=== PATIENT | male | born 1960 | race Caucasian/White ===

== ENCOUNTER 2018-01-30 23:01 | Emergency (ER) | payer OTHER ==
--- NOTE | 2018-01-31 00:06 | EDPHY ---
H & P Time Seen by Provider: 01/30/18 23:09 HPI/ROS: CC: Right ear discomfort HPI: This 57-year-old male with past medical history of a myocardial bridge, hypertension, bladder cancer presents to the emergency department tonight complaining of right ear discomfort for the last 2-3 weeks and occasionally feeling like his head is "swimming". He states he had a DO T physical few weeks ago and they noticed that he had a hair in his ear from a prior hair cut. Since that time he has had some ear discomfort and feeling like there is water in his ear. He states the lightheadedness will occur sometimes when he turns his head too fast and often it happens in the afternoon. He states he has had a headache the last few days but it goes away completely when he takes Excedrin. He does not have a headache now. He states he has not been sleeping well and will often take a couple Benadryl at night for sleep and allergies. 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 He has also had an increase in his metoprolol from 25 mg a day to 50 mg per day. He takes this once a day and takes it at various times depending on his schedule. He denies changes in his vision, neck pain or stiffness, sore throat, runny nose, cough, chest pain, abdominal pain, urinary retention. He occasionally feels short of breath. REVIEW OF SYSTEMS: Constitutional: No fever, no chills. Eyes: No discharge. ENT: No sore throat. Respiratory: No cough, no shortness of breath. Cardiac: No chest pain, no palpitations. Gastrointestinal: No abdominal pain, no vomiting. Genitourinary: No hematuria. Musculoskeletal: No back pain. Skin: No rashes. Neurological: No numbness, tingling or weakness. Psych: No suicidal ideation. Past Medical/Surgical History: PMH: Myocardial bridge, hypertension, bladder cancer in 2010 which was treated with 2 surgeries and BCG for approximately 3 years. PSH: Includes a back surgery at age 15, bladder surgery, appendectomy FH: Father approximately 2 years ago from congestive heart failure, he also had COPD. His mother at age 70 from lung cancer. No known drug allergies Medications include metoprolol 50 mg per day, Exforge, vitamin-D and a once a day vitamin. Occasional Benadryl. Primary care provider is Dr. Thor Banegas Social History: Denies tobacco products. Previously used to chew. He has a few alcoholic beverages per week. No marijuana products. Smoking Status: Never smoked Physical Exam: General Appearance: Alert, no distress. Eyes: Pupils equal and round no pallor or injection. ENT, Mouth: Right TM clear. 2 small hair clippings in EAC. Left TM clear. Mucous membranes are moist. Respiratory: There are no retractions, lungs are clear to auscultation. Cardiovascular: Regular rate and rhythm. No murmurs, gallops or rubs. Gastrointestinal: Abdomen is soft and nontender, bowel sounds normal. Neurological: Awake and alert, sensory and motor exams grossly normal. Skin: Warm and dry, no rashes. Musculoskeletal: Neck is supple and nontender. Extremities are symmetrical, full range of motion. Psychiatric: Patient is oriented X 3, there is no agitation. DIFFERENTIAL DIAGNOSIS: After history and physical exam differential diagnosis was considered for but not limited to: Otitis media, otitis externa, foreign body in EAC, vertigo, medication side effect, brain tumor, anemia, electrolyte imbalance Constitutional: Initial Vital Signs Temperature (C) 97.5 F 01/30/18 23:02 Heart Rate 59 L 01/30/18 23:02 Respiratory Rate 16 01/30/18 23:02 Blood Pressure 127/81 H 01/30/18 23:02 O2 Sat (%) 97 01/30/18 23:02 O2 Delivery Mode Room Air Allergies/Adverse Reactions: No Known Allergies Allergy (Verified 01/31/13 17:41) Home Medications: Medication Instructions Recorded AMLODIPINE/VALSARTAN [Exforge 1 each PO DAILY 01/31/13 5-320 mg] Amoxicillin/Clavulanate Pot 875 mg PO BID 10 Days tab 08/13/14 [Augmentin 875 MG TAB (RX)] Medical Decision Making ED Course/Re-evaluation: The patient was seen and examined. Vital signs reviewed. A few of his prior medical records were reviewed as well. He hair clippings in his right external auditory canal were flushed out by the furniture repair technician. A CBC and a basic metabolic panel were normal ruling out anemia and electrolyte imbalance (the metoprolol and Exforge combination can sometimes cause hyperkalemia). I have advised the patient that he should take his metoprolol at the same time every day. He should monitor and record his blood pressure and heart rate especially when he is having the symptoms of his "head swimming". He should discuss his symptoms with his primary care provider. I talked to him about the unlikely possibility of an intracranial abnormality/imaging options and he will discuss this with his primary care provider if symptoms persist. He also states that the anxiety has been persistent due to his business troubles. 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 This is causing him financial distress. He also relates stress due to his sister fighting with him over his father's estate. I have given him a take-home pack of lorazepam and have urged him to discuss this with his primary care provider as well. The patient will return to the emergency room if symptoms change or worsen as discussed. - Data Points Laboratory Results: 01/31/18 00:21 POC Sodium 139 mEq/L mEq/L (135-145) POC Potassium 3.3 mEq/L mEq/L (3.3-5.0) POC Chloride 100.0 mEq/L mEq/L (97-110) POC Total CO2 29 mEq/L mEq/L (22-31) POC BUN 15 mg/dL mg/dL (7-23) POC Creatinine 0.8 mg/dL mg/dL (0.7-1.3) POC Glucose 119 mg/dL H mg/dL (70-100) POC Calcium 9.5 mg/dL mg/dL (8.5-10.4) Medications Given: Discontinued Medications Lorazepam (Ativan 1 Mg Prepack#4) 1 btl TAKEHOME EDNOW ONE Stop: 01/31/18 00:18 Last Admin: 01/31/18 00:55 Dose: 1 btl Point of Care Test Results: CBC CBC Collection Date 01/31/18 CBC Collection Time 00:22 WBC 10.0 RBC 5.54 HGB 15.8 HCT 46.3 PLT 200 Neut # 7.2 Neut 71.7 LYMPH # 2.5 LYMPH 25.4 Other WBC # 0.3 Other WBC 2.9 MCV 83.6 Chemistry 01/31/18 00:21 POC Sodium 139 mEq/L mEq/L (135-145) POC Potassium 3.3 mEq/L mEq/L (3.3-5.0) POC Chloride 100.0 mEq/L mEq/L (97-110) POC Total CO2 29 mEq/L mEq/L (22-31) POC BUN 15 mg/dL mg/dL (7-23) POC Creatinine 0.8 mg/dL mg/dL (0.7-1.3) POC Glucose 119 mg/dL H mg/dL (70-100) POC Calcium 9.5 mg/dL mg/dL (8.5-10.4) Departure - Departure Disposition: Home, Routine, Self-Care Clinical Impression: Discomfort of right ear Condition: Good Instructions: Lorazepam (By mouth), Lightheadedness (ED), Dizziness (ED), Anxiety (ED) Additional Instructions: Follow up with your primary care provider regarding your symptoms of feeling like your head is swimming. You may need further work-up including imaging as discussed. Take your metoprolol at the same time every day. Monitor and record your blood pressure and heart rate and discuss with your primary care provider as discussed. Also discuss your anxiety with your primary care provider. Please return to the ER immediately if your symptoms change or worsen as discussed. Referrals: Thor Banegas MD [[facility] Primary Care Provider] - As per Instructions
[2018-01-31] MEDS ORDERED: LORAZEPAM 1 MG PREPACK#4 BTL TAKEHOME ONE (00:17)
[2018-01-31 00:59] VITALS: BP 124/74
== END 2018-01-31 00:59 | disposition home or self-care (01) ==
LOC: CED 23:01
DX: H92.01 Otalgia, right ear (principal)
CPT/HCPCS: 80048-PO

== ENCOUNTER 2018-03-06 07:09 | Emergency (ER) | payer OTHER ==
--- NOTE | 2018-03-06 07:40 | EDPHY ---
H & P Stated Complaint: " panic attack" Time Seen by Provider: 03/06/18 07:27 HPI/ROS: Chief Complaint: Face tingling, sweaty, chest discomfort HPI: 57-year-old male woke up this morning and developed a hot sensation then became sweaty developed a very mild is discomfort in his left chest. He then developed some tingling in the left side of his cheek. Patient states that last night about 10 30 he also developed some tingling in his left cheek but did not have the other symptoms. He has had this in the past. He has attributed to stress and anxiety. He did not have any shortness of breath. He does have a history of a vascular malformation in his heart and is on a beta astrid from his cylinder block mechanic. He did have a catheterization 2 years ago which revealed this malformation but states that he did not have any coronary artery disease at that time. He does not smoke. Father did of complications of congestive heart failure at an older age. His father was a heavy smoker. No fevers or chills. No cough. He is currently without any symptoms. ROS: 10 systems were reviewed and were negative except those elements noted in the HPI. PMH: Coronary artery malformation Social History: No smoking, occasional alcohol, no recreational drug use Family History: non-contributory Physical Exam: Gen: Awake, Alert, No Distress HEENT: Nose: no rhinorrhea Eyes: PERRLA, EOMI Mouth: Moist mucosa Neck: Supple, no JVD Chest: nontender, lungs clear to auscultation Heart: S1, S2 normal, no murmur Abd: Soft, non-tender, no guarding Back: no CVA tenderness, no midline tenderness Ext: no edema, non-tender Skin: no rash Neuro: CN II-XII intact, Sensation grossly intact, Strength 5/5 in bilateral upper and lower extremities - Personal History Current Tetanus Diphtheria and Acellular Pertussis (TDAP): Yes - Medical/Surgical History Hx Asthma: No Hx Chronic Respiratory Disease: No Hx Diabetes: No Hx Cardiac Disease: Yes Hx Renal Disease: No Hx Cirrhosis: No Hx Alcoholism: No Hx HIV/AIDS: No Hx Splenectomy or Spleen Trauma: No Other PMH: htn/ bladder ca/ortho - Social History Smoking Status: Never smoked Constitutional: Initial Vital Signs Temperature (C) 36.5 C 03/06/18 07:18 Heart Rate 65 11/01/18 07:18 Respiratory Rate 18 03/06/18 07:18 Blood Pressure 155/94 H 03/06/18 07:18 O2 Sat (%) 94 03/06/18 07:18 O2 Delivery Mode Room Air Allergies/Adverse Reactions: No Known Allergies Allergy (Verified 03/06/18 07:17) Home Medications: Medication Instructions Recorded AMLODIPINE/VALSARTAN [Exforge 1 each PO DAILY 01/31/13 5-320 mg] Metoprolol Succinate 03/06/18 Medical Decision Making - Diagnostics EKG Interpretation: ECG time 7:47 a.m., sinus rhythm with a rate of 66, there is a right bundle branch block. No ST or T-wave changes. The ECG is unchanged from 1979. ED Course/Re-evaluation: 57-year-old male presenting with an episode of diaphoresis felt warm with some mild chest discomfort. Has a history of myocardial bridging but otherwise clean catheterization 2 years ago. Initial troponin and ECG are unremarkable. He is otherwise low risk. HEART score is 2. Will repeat troponin at 10:30. Repeat troponin is normal. PT symptom free. No evidence of acute cardiac or neurological process. Will refer to follow-up with his cylinder block mechanic. - Data Points Laboratory Results: Laboratory Results 03/06/18 07:45 03/06/18 03/06/18 03/06/18 10:38 07:56 07:55 WBC RBC Hgb Hct MCV MCH MCHC RDW Plt Count MPV Neut % (Auto) Lymph % (Auto) Polk % (Auto) Eos % (Auto) Baso % (Auto) Nucleat RBC Rel Count Absolute Neuts (auto) Absolute Lymphs (auto) Absolute Monos (auto) Absolute Eos (auto) Absolute Basos (auto) Absolute Nucleated RBC Immature Gran % Immature Gran # POC Sodium 136 mEq/L mEq/L (135-145) POC Potassium 3.8 mEq/L mEq/L (3.3-5.0) POC Chloride 110.0 mEq/L mEq/L (97-110) POC Total CO2 29 mEq/L mEq/L (22-31) POC BUN 17 mg/dL mg/dL (7-23) POC Creatinine 0.8 mg/dL mg/dL (0.7-1.3) POC Glucose 120 mg/dL H mg/dL (70-100) POC Calcium 8.8 mg/dL mg/dL (8.5-10.4) POC Total Bilirubin 0.6 mg/dL mg/dL (0.1-1.4) POC AST 41 IU/L IU/L (17-59) POC ALT 42 IU/L IU/L (21-72) POC Alk Phosphatase 85 IU/L IU/L (38-126) POC Troponin I Pending 0.00 ng/mL ng/mL (0.00-0.08) POC Total Protein 6.9 g/dL g/dL (6.3-8.2) POC Albumin 4.0 g/dL g/dL (3.5-5.0) 03/06/18 07:45 WBC 7.83 10^3/uL 10^3/uL (3.80-9.50) RBC 5.85 10^6/uL 10^6/uL (4.40-6.38) Hgb 16.3 g/dL g/dL (13.7-17.5) Hct 48.3 % % (40.0-51.0) MCV 82.6 fL fL (81.5-99.8) MCH 27.9 pg pg (27.9-34.1) MCHC 33.7 g/dL g/dL (32.4-36.7) RDW 13.3 % % (11.5-15.2) Plt Count 203 10^3/uL 10^3/uL (150-400) MPV 10.6 fL fL (8.7-11.7) Neut % (Auto) 68.1 % % (39.3-74.2) Lymph % (Auto) 21.5 % % (15.0-45.0) Polk % (Auto) 6.9 % % (4.5-13.0) Eos % (Auto) 2.6 % % (0.6-7.6) Baso % (Auto) 0.5 % % (0.3-1.7) Nucleat RBC Rel Count 0.0 % % (0.0-0.2) Absolute Neuts (auto) 5.34 10^3/uL 10^3/uL (1.70-6.50) Absolute Lymphs (auto) 1.68 10^3/uL 10^3/uL (1.00-3.00) Absolute Monos (auto) 0.54 10^3/uL 10^3/uL (0.30-0.80) Absolute Eos (auto) 0.20 10^3/uL 10^3/uL (0.03-0.40) Absolute Basos (auto) 0.04 10^3/uL 10^3/uL (0.02-0.10) Absolute Nucleated RBC 0.00 10^3/uL 10^3/uL (0-0.01) Immature Gran % 0.4 % % (0.0-1.1) Immature Gran # 0.03 10^3/uL 10^3/uL (0.00-0.10) POC Sodium POC Potassium POC Chloride POC Total CO2 POC BUN POC Creatinine POC Glucose POC Calcium POC Total Bilirubin POC AST POC ALT POC Alk Phosphatase POC Troponin I POC Total Protein POC Albumin Point of Care Test Results: Chemistry 03/06/18 03/06/18 07:56 07:55 POC Sodium 136 mEq/L mEq/L (135-145) POC Potassium 3.8 mEq/L mEq/L (3.3-5.0) POC Chloride 110.0 mEq/L mEq/L (97-110) POC Total CO2 29 mEq/L mEq/L (22-31) POC BUN 17 mg/dL mg/dL (7-23) POC Creatinine 0.8 mg/dL mg/dL (0.7-1.3) POC Glucose 120 mg/dL H mg/dL (70-100) POC Calcium 8.8 mg/dL mg/dL (8.5-10.4) POC Total Bilirubin 0.6 mg/dL mg/dL (0.1-1.4) POC AST 41 IU/L IU/L (17-59) POC ALT 42 IU/L IU/L (21-72) POC Alk Phosphatase 85 IU/L IU/L (38-126) POC Troponin I 0.00 ng/mL ng/mL (0.00-0.08) POC Total Protein 6.9 g/dL g/dL (6.3-8.2) POC Albumin 4.0 g/dL g/dL (3.5-5.0) Departure - Departure Disposition: Home, Routine, Self-Care Clinical Impression: Chest pain Condition: Good Instructions: Chest Pain (ED) Additional Instructions: Follow up with your cylinder block mechanic in 2-3 days for recheck. Return to the emergency department for increasing chest pain, shortness of breath, fainting, numbness, weakness, or any other concerns. Referrals: Thor Banegas MD [Primary Care Provider] - As per Instructions Augie Schneider MD [Non Staff Provider (MD)] - As per Instructions
[2018-03-06 09:00] LABS: PLATELET COUNT 203 10^3/uL (150-400)
[2018-03-06 11:06] VITALS: BP 122/78
--- NOTE | 2018-03-06 14:35 | CPEKG ---
Test Reason : OPEN Blood Pressure : / mmHG Vent. Rate : 066 BPM Atrial Rate : 066 BPM P-R Int : 159 ms QRS Dur : 158 ms QT Int : 452 ms P-R-T Axes : 042 021 015 degrees QTc Int : 474 ms Sinus rhythm Right bundle branch block Confirmed by Fernando Park ([id number]) on 03/06/2018 2:34:36 PM Referred By: Confirmed By:Fernando Park
== END 2018-03-06 11:09 | disposition home or self-care (01) ==
LOC: CED 07:09
DX: R07.9 Chest pain, unspecified (principal); R20.2 Paresthesia of skin; R61 Generalized hyperhidrosis; I10 Essential (primary) hypertension
CPT/HCPCS: 80053-PO; 84484-PO